=== PATIENT | male | born 1965 | race Caucasian/White ===

== ENCOUNTER → 2019-10-20 | Outpatient (CLI) | payer MEDICARE ==
--- NOTE | 2019-10-21 15:31 | REP ---
MRI LEFT SHOULDER: TECHNIQUE: Coronal oblique T1 and fat suppressed T2. Sagittal oblique fat suppressed T2. Axial [id number] and T2 FLASH. There is increased signal on T2-weighted images extending through a portion of the bursal surface of the supraspinatus tendon consistent with a partial bursal surface tear. The other rotator cuff tendons appear intact. There are mild hypertrophic degenerative changes of the acromioclavicular joint with mild subchondral marrow edema and mild fluid in the joint. The acromion is type 2. Biceps tendon is within the bicipital groove with mild surrounding fluid. No Hill-Sachs deformity is seen. The deltoid muscle demonstrates no abnormal signal. There is a SLAP tear which undermines the biceps labral complex. There also appears to be a posterior labral tear. There are very small subcortical cysts in the superolateral humeral head. There is a small joint effusion. IMPRESSION: Partial bursal surface tear supraspinatus tendon. 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 Mild fluid surrounding the biceps tendon. Slap tear undermines the biceps labral complex. There also appears to be a posterior labral tear. Electronically Signed by Lisandro Ogden MD 10/23/2019 12:46 A
--- NOTE | 2019-10-21 15:34 | REP ---
MRI LEFT CHEST/PECTORALIS MUSCLES: Multiple sequences obtained in the axial, coronal and sagittal planes. The left pectoralis major and minor muscles are intact. No abnormal signal is seen. No mass is seen in the axilla. Normal sized lymph nodes are seen. Thoracic vertebral bodies are normal in height. There are a few disc bulges seen in the lower thoracic region. IMPRESSION: No evidence of tear of left pectoralis major and minor muscles. Electronically Signed by Lisandro Ogden MD 10/23/2019 12:46 A
== END ==
LOC: M RAD 10:22
PROVIDERS: ATTEND Orthopaedic Surgery Sports Medicine
DX: M25.512 Pain in left shoulder (principal); S43.492A Other sprain of left shoulder joint, initial encounter; X58.XXXA Exposure to other specified factors, initial encounter; Y92.9 Unspecified place or not applicable

== ENCOUNTER → 2019-11-07 | Outpatient (CLI) | payer OTHER ==
--- NOTE | 2019-11-07 17:29 | ECGEPIP ---
[facility] Test Date: 2019-11-07 Pat Name: CHRISTO OJEDA Department: Room: - Gender: Male Maintenance Manager: XIOMARA : 1965 Requested By: GINI DAVIS Order Number: [id number] Reading MD: David Chamorro Measurements Intervals [place] Rate: 69 P: 28 SD: 200 QRS: -37 QRSD: 95 T: 6 QT: 365 QTc: 394 Interpretive Statements SINUS RHYTHM INFERIOR MYOCARDIAL INFARCTION, PROBABLY OLD No prior tracing in the system Electronically Signed on 11-07-2019 17:29:28 EDT by David Chamorro
== END ==
LOC: M EKG 12:03
PROVIDERS: ATTEND Orthopaedic Surgery Sports Medicine
DX: I10 Essential (primary) hypertension (principal)

== ENCOUNTER → 2019-11-08 | Outpatient (CLI) | payer MEDICARE | LOC: M LABSMTC 08:10 | PROVIDERS: ATTEND Orthopaedic Surgery Sports Medicine | DX: Z11.59 Encounter for screening for other viral diseases (principal); Z03.89 Encounter for observation for other suspected diseases and conditions ruled out ==

== ENCOUNTER → 2019-11-09 | Outpatient (CLI) | payer OTHER | LOC: M LABSMTC 09:07 | PROVIDERS: ATTEND Orthopaedic Surgery Sports Medicine | DX: Z01.818 Encounter for other preprocedural examination (principal); Z11.59 Encounter for screening for other viral diseases ==

== ENCOUNTER → 2020-05-17 | Outpatient (REF) | payer OTHER | LOC: M LAB REF 16:20 | PROVIDERS: ATTEND Physician Assistant Medical | DX: Z20.828 Contact with and (suspected) exposure to other viral communicable diseases (principal) ==